=== PATIENT | female | born 1970 | race American Indian/Alaskan Native ===

== ENCOUNTER 2018-04-19 06:36 | Day surgery (SDC) | payer BC ==
[2018-04-19] MEDS ORDERED: ECOTRIN PO ONE (06:52)
[2018-04-19] MEDS ORDERED: NACL 0.9% 500 ML 500 ML IV SCH (07:00)
[2018-04-19 07:57] LABS: Basophils % (Auto) 0.4 % (0.0-1.8); Hematocrit 33.6 % (30.3-42.9); Hemoglobin 11.1 gm/dl (10.1-14.3); Lymphocytes # (Auto) 2.1 K/mm3 (1.2-5.4); Lymphocytes % (Auto) 44.2 % (13.4-35.0); Mean Corpuscular HGB Conc 33 % (30-34); Mean Corpuscular Hemoglobin 28 pg (28-32); Mean Corpuscular Volume 84 fl (79-97); Monocytes # (Auto) 0.3 K/mm3 (0.0-0.8); Monocytes % (Auto) 6.9 % (0.0-7.3); Platelet Count 285 K/mm3 (140-440); Red Cell Distribution Width 15.2 % (13.2-15.2)
[2018-04-19 08:07] LABS: INR 0.89 (0.87-1.13)
[2018-04-19] MEDS ORDERED: XYLOCAINE 2% INFILTRATI ONE (08:27)
[2018-04-19] MEDS ORDERED: HEPARIN/NS 5000 UNIT/500ML(CATH LAB) 1,000 ML IR ONE (08:27)
[2018-04-19] MEDS ORDERED: VERSED ONE (08:28)
[2018-04-19 08:48] LABS: BUN/Creatinine Ratio 10; Blood Urea Nitrogen 7 mg/dL (7-17); Calcium 8.5 mg/dL (8.4-10.2); Hemolysis Index 30
[2018-04-19] MEDS: SUBLIMAZE ONE ×2 (09:05→09:27)
[2018-04-19] MEDS: HEPARIN 10,000 UNITS/10 ML ONE ×2 (09:09→09:16)
[2018-04-19] MEDS: CALAN ONE ×2 (09:09→09:16)
[2018-04-19] MEDS: NITROGLYCERIN SYRINGE 3 ML ONE ×2 (09:10→09:16)
--- NOTE | 2018-04-19 10:40 | Cardiac Catherization Report ---
LEFT HEART CATHETERIZATION ORDERING PHYSICIAN: Mando Irwin M.D. CLINICAL INFORMATION: This 47-year-old female with obesity, recurrent chest pain despite negative stress test and echocardiogram is here for left heart catheterization for definitive diagnosis. Moderate sedation with 1 mg of Versed and 100 mcg of fentanyl was given. Total sedation time was 30 minutes. Start sedation time was 09:05 a.m. End time was 09:35 a.m. Procedure was done via the right radial artery, sterile technique, local anesthesia, 6-[place] radial sheath inserted. FINDINGS: Left system was engaged with AL1 catheter. Left main is large and patent, bifurcates into a medium caliber LAD that is patent with moderate tortuosity, the distal tapers down to small caliber. Diagonal 1 is a rdugr-rm-lngtmv caliber vessel, patent with moderate tortuosity. Circumflex and AV groove is quuih-gk-gsxwla caliber vessel, patent with moderate tortuosity. Ramus is a nhooy-nt-eshruf caliber vessel patent with moderate tortuosity. OM1 is a ahzhp-yn-awmfpg caliber vessel patent with moderate tortuosity. OM2 is a uasvz-vt-gssavd caliber vessel that is patent with moderate tortuosity. RCA engaged with JR4 is a large dominant vessel with moderate tortuosity that is patient. PDA is a medium caliber vessel that is patent. LV gram done in OCCITAN and POPE view shows normal LV function, LVEDP of 22 mmHg, LV is 130/22, aortic is 127/79. No gradient across the aortic valve on pullback. 5-[place] catheters were taken over guidewire, 6-[place]ine[place] radial sheath discontinued, radial dressing applied. No hematoma, no bleeding. SUMMARY: 1. Normal coronaries, moderate tortuosity vessels, right dominant system, normal LV function. 2. 6-[place] radial sheath was discontinued, radial band applied. No hematoma, no bleeding. Continue risk factor modification. Discussed this with the patient and the patient's family in detail. JOB# [id number] COLLIN/SHANELL
--- NOTE | 2018-04-19 10:55 | Short Stay Summary ---
Short Stay Documentation Date of service: 04/19/18 - History H&P: obtained from office - Allergies and Medications Current Medications: Allergies No Known Allergies Allergy (Unverified 04/19/18 06:37) Home Medications Medication Instructions Recorded Confirmed Last Taken Type Ergocalciferol [Vitamin D2] 1 cap PO QWEEK 04/19/18 04/19/18 04/14/18 History 1 cap Active Medications Sodium Chloride (Nacl 0.9% 500 Ml) 500 mls @ 50 mls/hr IV DIRECT TYLER Stop: 04/19/18 16:59 Last Admin: 04/19/18 07:30 Dose: 50 mls/hr - Brief post op/procedure progress note Date of procedure: 04/19/18 Pre-op diagnosis: chest pain Post-op diagnosis: same Procedure: see report Anesthesia: local Estimated blood loss: none Pathology: none - Disposition Condition at discharge: Good Disposition: [id number] TO HOME OR SELFCARE - Discharge Diagnoses (1) Chest pain at rest Status: Chronic (2) Obesity (BMI 30.0-34.9) Status: Chronic Short Stay Discharge Plan Activity: advance as tolerated Diet: low fat, low cholesterol, low salt Wound: keep clean and dry Follow up with: NINFA VIRK MD [Primary Care Provider] - 7 Days
[2018-04-19 12:51] VITALS: BP 131/88
== END 2018-04-19 13:00 | disposition home or self-care (01) ==
LOC: CATHLABREC 06:36
PROVIDERS: ATTEND Internal Medicine
DX: R07.9 Chest pain, unspecified (principal); E66.9 Obesity, unspecified; Z68.35 Body mass index [BMI] 35.0-35.9, adult
CPT/HCPCS: 36415; 80048; 85025; 85610; 85730; 93005; 93010; 93458; 99156; 99157; C1887; C1894; J1644; J2250; J3010; J7040; Q9967